=== PATIENT | male | born 1945 | race Caucasian/White ===

== ENCOUNTER → 2017-09-26 | Outpatient (CLI) | payer MEDICARE ==
[2017-09-26 15:08] LABS: BASO # 0.1 (0.0-0.2); BASO % 1.1 % (0.0-2.0); EOS # 0.1 (0.0-0.7); EOS % 1.4 % (0-4.0); GRAN # 5.9 (1.4-6.5); GRAN % 63.3 % (42.2-75.2); HEMATOCRIT 48.9 % (42.0-52.0); HEMOGLOBIN 16.8 g/dl (13.5-18.0); LYMPH # 2.4 (1.2-3.4); LYMPH % 25.8 % (20.0-51.0); MEAN CELL VOLUME 86 fl (80.0-100.0); MEAN CORPUSCULAR HEMOGLOBIN 30 pg (27.0-31.0); MEAN CORPUSCULAR HGB CONC 34 g/dl (33.0-37.0); MEAN PLATELET VOLUME 9.7 fl (7.4-10.4); MONO # 0.8 (0.1-0.6); MONO % 8.2 % (1.7-9.3); PLATELET COUNT 245 K/mm3 (130-400); RED BLOOD COUNT 5.66 M/mm3 (4.20-5.60); WHITE BLOOD COUNT 9.4 K/mm3 (4.8-10.8)
[2017-09-26 15:09] LABS: ADJUSTED CALCIUM 9.5 mg/dL (8.4-10.2); ALBUMIN 4.3 gm/dL (3.5-5.0); BILIRUBIN,TOTAL 1.1 mg/dL (0.0-1.0); CALCIUM 9.7 mg/dL (8.4-10.2); CREATININE, serum 1.45 mg/dL (0.66-1.25); POTASSIUM 4.1 mmol/L (3.4-5.0); TOTAL PROTEIN 7.4 gm/dL (6.4-8.2)
== END ==
LOC: COL.LAB 11:39
PROVIDERS: Family Medicine
DX: Z00.00 Encounter for general adult medical examination without abnormal findings (principal)

== ENCOUNTER → 2019-12-08 | Outpatient (CLI) | payer MEDICARE ==
[2019-12-08 13:07] LABS: BASO # 0.1 (0.0-0.2); BASO % 0.8 % (0.0-2.0); EOS # 0.1 (0.0-0.7); GRAN # 6.6 (1.4-6.5); HEMATOCRIT 45.6 % (42.0-52.0); HEMOGLOBIN 15.2 g/dl (13.5-18.0); LYMPH # 1.9 (1.2-3.4); LYMPH % 20.2 % (20.0-51.0); MEAN CELL VOLUME 90 fl (80.0-100.0); MEAN CORPUSCULAR HEMOGLOBIN 30 pg (27.0-31.0); MEAN CORPUSCULAR HGB CONC 33 g/dl (33.0-37.0); MEAN PLATELET VOLUME 10.3 fl (7.4-10.4); MONO # 0.6 (0.1-0.6); MONO % 6.7 % (1.7-9.3); PLATELET COUNT 241 K/mm3 (130-400); RED BLOOD COUNT 5.09 M/mm3 (4.20-5.60); REDCELL DISTRIBUTION WIDTH-CV 14.7 % (11.5-14.5)
[2019-12-08 13:14] LABS: ALBUMIN 3.8 gm/dL (3.5-5.0); CALCIUM 9.1 mg/dL (8.4-10.2); CREATININE, serum 1.5 (0.66-1.25); POTASSIUM 4.1 mmol/L (3.4-5.0); TOTAL PROTEIN 6.7 gm/dL (6.4-8.2)
== END ==
LOC: ZCOL.LAB 12:45
PROVIDERS: Nurse Practitioner
DX: R50.9 Fever, unspecified (principal); R05 Cough

== ENCOUNTER → 2019-12-08 | Outpatient (CLI) | payer MEDICARE | LOC: COL.RAD 12:06 | DX: J90 Pleural effusion, not elsewhere classified (principal); J18.1 Lobar pneumonia, unspecified organism ==

== ENCOUNTER → 2019-12-26 | Outpatient (CLI) | payer MEDICARE | LOC: COL.RAD 11:19 | DX: R05 Cough (principal); R50.9 Fever, unspecified ==

== ENCOUNTER 2020-02-23 12:34 | Emergency (ER) | payer MEDICARE ==
[~2020-02-23] VITALS: Ht 180.3 cm; Wt 77.3 kg
[2020-02-23 14:05] LABS: COLLECTION METHOD IN
[2020-02-23 14:31] LABS: HEMATOCRIT 51.7 % (42.0-52.0); HEMOGLOBIN 16.5 g/dl (13.5-18.0); MEAN CELL VOLUME 91 fl (80.0-100.0); MEAN CORPUSCULAR HEMOGLOBIN 29 pg (27.0-31.0); MEAN CORPUSCULAR HGB CONC 32 g/dl (33.0-37.0); MEAN PLATELET VOLUME 12.1 fl (7.4-10.4); PLATELET COUNT 54 K/mm3 (130-400); RED BLOOD COUNT 5.66 M/mm3 (4.20-5.60); REDCELL DISTRIBUTION WIDTH-CV 17.6 % (11.5-14.5)
[2020-02-23 14:37] LABS: PARTIAL THROMBOPLASTIN TIME 42.5 SECONDS (26.0-37.0)
[2020-02-23 14:40] LABS: PH 5 (5-8); SQUAMOUS EPITHELIAL None Seen /hpf; URINE APPEARANCE Clear; URINE BACTERIA Rare /hpf; URINE BILIRUBIN Negative (NEGATIVE); URINE BLOOD 3+ (NEGATIVE); URINE COLOR Amber; URINE GLUCOSE Negative (NEGATIVE); URINE KETONE Negative (NEGATIVE); URINE LEUKOCYTE ESTERASE Negative (NEGATIVE); URINE NITRATE Negative (NEGATIVE); URINE PROTEIN(semi-quant) Negative (NEGATIVE); URINE RBC >50 /hpf
[2020-02-23 14:46] LABS: ALANINE AMINOTRANSFERASE 34 U/L (4-49); ALBUMIN 2.4 gm/dL (3.5-5.0); ALKALINE PHOSPHATASE 62 U/L (50-136); ANION GAP 4 mmol/L (7-16); AST,SGOT 28 U/L (15-37); BLOOD UREA NITROGEN 57 mg/dL (9-20); CALCIUM 8.6 mg/dL (8.4-10.2); CARBON DIOXIDE 25 mmol/L (22-30); CHLORIDE 126 mmol/L (98-107); CREATINE KINASE 205 U/L (55-170); CREATININE, serum 0.99 (0.66-1.25); GLUCOSE 102 mg/dL (74-106); MAGNESIUM 2.5 mg/dL (1.6-2.3); PHOSPHOROUS 3.1 mg/dL (2.5-4.5); POTASSIUM 3.7 mmol/L (3.4-5.0); SODIUM 155 mmol/L (137-145); TOTAL PROTEIN 5.2 gm/dL (6.4-8.2)
[2020-02-23 14:48] LABS: INR 1.5 (0.8-3.0)
[2020-02-23] MEDS ORDERED: VTAMINC250TA (14:53)
[2020-02-23] MEDS ORDERED: MUCINEX 60600 MG/TA1 PO (14:53)
[2020-02-23] MEDS ORDERED: GARLIC100 MG PO (14:53)
[2020-02-23] MEDS ORDERED: ZITHROMAX 250M250 MG PO (14:54)
[2020-02-23] MEDS ORDERED: VITAMINE200 (14:54)
[2020-02-23 14:57] LABS: ALCOHOL(ethanol),MEDICAL < 10 mg/dL; C-REACTIVE PROTEIN 14.8 mg/dL (0.0-0.9)
[2020-02-23 14:58] LABS: TROPONIN-I 0.784 ng/mL (0.000-0.035)
--- NOTE | 2020-02-23 15:05 | NUR ---
Patient was brought in by [facility] ambulance to the emergency room. EMS crew state that patient's home was uninhabitable and patient was most likely down in his home for the last 6 days. Patient is able to tell staff his date of , however, is not completed oriented. Worker spoke with patient's friend, Rainer Aguilar and Rainer's daughter, Nelli Pereira at [phone]. Through Rainer's information, worker confirmed that patient is and does not have any children. Worker contacted a nephew, Haroon, and confirmed that parents are and that patient has a sister, Maegan Ramírez in [place] [phone] and a brother, Jose Manuel Messina in [place] [phone]. At this time, in the absense of a durable power of workers compensation defense attorney, Maegan and Jose Manuel are legal next of kin for any health care decisions if patient cannot speak for himself. Worker and house superviser spoke with Maegan and her advising of the above information. Worker left a message for Jose Manuel Boss to call social worker school staff. Worker met with ICU nursing and advised of the above information with contact numbers. 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 He lives alone and has had coffee with Rainer Pereira periodically. Rainer became concerned for patient's welfare as he hadn't been able to contact him and called for a check welfare. Maegan states patient has been ill since last September and they feared he had covid-19. Patient's primary care physician was Ashwini Garza. Nelli made an appointment for patient to see a [facility] physician, however, patient did not go to the appointment. Patient will transfer to a bed in ICU.
[2020-02-23 16:37] VITALS: TEMP 96.1
[2020-02-23 17:29] LABS: BAND 8 % (0-10); LYMPHOCYTE 3 % (20.0-51.0); NEUTROPHILS 85 % (42.0-75.2)
[2020-02-23 17:30] LABS: HYPOCHROMIA 2+; PLATELET ESTIMATE DECREASED (NORMAL)
[2020-02-23 17:31] LABS: ANISOCYTOSIS 1+
[2020-02-23 17:52] VITALS: BP 126/90; PULSE 103
--- NOTE | 2020-02-24 10:32 | NUR ---
disposal worker contacted Opal, social service director at [facility], and provided information determined on legal next of kin for patient. Opal states she will call patient's sister and brother to connect.
== END 2020-02-23 18:00 | disposition short-term general hospital (02) ==
LOC: COL.ER 12:34
PROVIDERS: Emergency Medicine
DX: A41.9 Sepsis, unspecified organism (principal); E86.0 Dehydration; L89.109 Pressure ulcer of unspecified part of back, unspecified stage; L89.899 Pressure ulcer of other site, unspecified stage; R79.89 Other specified abnormal findings of blood chemistry
CPT/HCPCS: C1751; J0692; J1644; J7030